=== PATIENT | male | born 1950 | race Two or more races ===

== ENCOUNTER 2016-07-27 05:45 | Day surgery (SDC) | payer OTHER ==
[~2016-07-27] VITALS: Ht 170.2 cm; Wt 71.8 kg
[~2016-07-27 05:45] MED LIST: CIPR500T4 PO; HYDR-902 PO
[2016-07-27 07:36] VITALS: Ht 170.2 cm; Wt 71.8 kg
[2016-07-27 07:56] VITALS: BP 131/80; PULSE 81; RESP 18
[2016-07-27] MEDS ORDERED: PROPOFOL 20 ML ONE (08:00)
[2016-07-27 09:22] VITALS: BP 141/83; PULSE 76; RESP 20
--- NOTE | 2016-07-27 10:10 | GILP ---
DATE OF PROCEDURE: PROCEDURE PERFORMED: Colonoscopy with polypectomy and biopsy. INDICATION: The patient is a 66-year-old male undergoing this procedure for a colon cancer screenin g. The risks of the procedure, related and unrelated complications, anesthetic risks, alternatives discussed. Informed consent was obtained. DESCRIPTION OF PROCEDURE: The patient was brought to the GI lab, sedated by the anesthesiologist. After optimal sedation, scope was passed with much ease into rectum, advanced through sigmoid, desce nding, transverse colon all the way into cecum. Appendiceal orifice and IC valve identified. Krys ty was good. Preparation was adequate. There was a polyp identified in the transverse colon, 7 mm in diameter, successfully removed by cold snare technique. There were 3 polyps diminutive cheikh ntified in the rectum, successfully removed by cold biopsy forceps. Rest of the colon appeared norm al except for a small-mouth few diverticula, milder form. Those were scattered. Small hemorrhoids identified. IMPRESSION: 1. Polyp, 8 mm in diameter, in the transverse colon. Successfully removed by cold snare technique. 2. Three diminutive polyps in the rectum, successfully removed by jumbo biopsy forceps. 3. Mild diverticulosis. 4. Negative all the way into cecum. 5. Clarity was good. Cleanliness was adequate. 6. Small hemorrhoids. PLAN: Stay on high fiber diet. If the polyps are nonhypoplastic then definitely needs a repeat col onoscopy in 5 years. Dictated By: JOSE MCWILLIAMS/MARZENA Conf#: [id number] DID#: [id number] CC: Dr. Warren;*EndCC*
== END 2016-07-27 09:52 | disposition home or self-care (01) ==
LOC: GIL 05:45
PROVIDERS: ATTEND Internal Medicine Gastroenterology
DX: Z12.11 Encounter for screening for malignant neoplasm of colon (principal); D12.3 Benign neoplasm of transverse colon; D12.5 Benign neoplasm of sigmoid colon; K57.90 Diverticulosis of intestine, part unspecified, without perforation or abscess without bleeding; K64.9 Unspecified hemorrhoids
CPT/HCPCS: 45380; 88305; Z7610